=== PATIENT | female | born 1960 | race Asian ===

== ENCOUNTER 2017-01-14 09:52 | Outpatient (CLI) | payer OTHER ==
[~2017-01-14 09:52] MED LIST: AMOX875T8 PO; CENESTIN0.625 MG PO; LORA10TA3 PO; MICARDIS PO; MICARDISHCT PO; SIMV20TA2 PO; SULAR17 MG PO
== END 2017-01-14 11:00 | disposition home or self-care (01) ==
LOC: MAMMO 09:52
DX: Z12.31 Encounter for screening mammogram for malignant neoplasm of breast (principal)
CPT/HCPCS: G0202-TC

== ENCOUNTER 2019-01-12 09:33 | Outpatient (CLI) | payer OTHER | END 2019-01-12 22:23 | disposition home or self-care (01) | LOC: MAMMO 09:33 | DX: Z12.31 Encounter for screening mammogram for malignant neoplasm of breast (principal) ==

== ENCOUNTER 2019-06-16 10:26 | Outpatient (CLI) | payer OTHER | END 2019-06-16 20:24 | disposition home or self-care (01) | LOC: RAD 10:26 | DX: R42 Dizziness and giddiness (principal); I10 Essential (primary) hypertension; R73.03 Prediabetes; Z79.890 Hormone replacement therapy | CPT/HCPCS: 93005 ==

== ENCOUNTER 2019-06-30 09:58 | Outpatient (CLI) | payer OTHER | END 2019-06-30 23:29 | disposition home or self-care (01) | LOC: RAD 09:58 | DX: R42 Dizziness and giddiness (principal); H66.93 Otitis media, unspecified, bilateral; M25.511 Pain in right shoulder ==

== ENCOUNTER 2019-07-08 09:23 | Outpatient (CLI) | payer OTHER | END 2019-07-08 22:23 | disposition home or self-care (01) | LOC: US 09:23 | DX: R42 Dizziness and giddiness (principal); I10 Essential (primary) hypertension; R73.03 Prediabetes; E55.9 Vitamin D deficiency, unspecified; Z79.890 Hormone replacement therapy ==

== ENCOUNTER 2020-05-31 07:59 | Outpatient (CLI) | payer OTHER | END 2020-05-31 23:24 | disposition home or self-care (01) | LOC: LAB 07:59 | DX: Z20.828 Contact with and (suspected) exposure to other viral communicable diseases (principal) | CPT/HCPCS: 87635; G2023; U0003 ==

== ENCOUNTER 2020-08-13 08:23 | Outpatient (CLI) | payer OTHER | END 2020-08-13 19:12 | disposition home or self-care (01) | LOC: RAD 08:23 | PROVIDERS: ATTEND Family Medicine | DX: R01.1 Cardiac murmur, unspecified (principal); I10 Essential (primary) hypertension; R73.03 Prediabetes; R42 Dizziness and giddiness | CPT/HCPCS: 93005 ==

== ENCOUNTER 2020-09-05 08:56 | Outpatient (CLI) | payer OTHER | END 2020-09-05 20:00 | disposition home or self-care (01) | LOC: RESP 08:56 | PROVIDERS: ATTEND Family Medicine | DX: Z00.00 Encounter for general adult medical examination without abnormal findings (principal); R01.1 Cardiac murmur, unspecified; I10 Essential (primary) hypertension; Z79.890 Hormone replacement therapy; R73.03 Prediabetes; R42 Dizziness and giddiness ==

== ENCOUNTER 2022-01-20 11:02 | Outpatient (CLI) | payer OTHER | END 2022-01-20 18:53 | disposition home or self-care (01) | LOC: LABW 11:02 | PROVIDERS: ATTEND Family Medicine | DX: R10.9 Unspecified abdominal pain (principal); R79.89 Other specified abnormal findings of blood chemistry; M25.552 Pain in left hip | CPT/HCPCS: 36415; 80074 ==

== ENCOUNTER 2022-01-31 08:51 | Outpatient (CLI) | payer OTHER | END 2022-01-31 19:26 | disposition home or self-care (01) | LOC: US 08:51 | PROVIDERS: ATTEND Family Medicine | DX: R10.9 Unspecified abdominal pain (principal); R79.89 Other specified abnormal findings of blood chemistry; Z13.820 Encounter for screening for osteoporosis; Z79.890 Hormone replacement therapy ==

== ENCOUNTER 2022-03-19 08:41 | Outpatient (CLI) | payer OTHER | END 2022-03-19 18:52 | disposition home or self-care (01) | LOC: MAMMO 08:41 | PROVIDERS: ATTEND Family Medicine | DX: Z12.31 Encounter for screening mammogram for malignant neoplasm of breast (principal); Z79.890 Hormone replacement therapy ==

== ENCOUNTER 2022-10-30 13:50 | Outpatient (CLI) | payer BC | END 2022-10-30 22:29 | disposition home or self-care (01) | LOC: RAD 13:50 | PROVIDERS: ATTEND Family Medicine | DX: M25.562 Pain in left knee (principal); M25.561 Pain in right knee ==

== ENCOUNTER 2023-02-25 07:59 | Outpatient (CLI) | payer BC | END 2023-02-25 18:51 | disposition home or self-care (01) | LOC: US 07:59 | PROVIDERS: ATTEND Family Medicine | DX: R42 Dizziness and giddiness (principal); I10 Essential (primary) hypertension; R73.03 Prediabetes; E78.49 Other hyperlipidemia ==